=== PATIENT | male | born 1955 | race Caucasian/White ===

== ENCOUNTER → 2016-11-21 | Outpatient (CLI) | payer BC ==
[~2016-11-21] VITALS: Ht 182.9 cm; Wt 81.1 kg
[~2016-11-21] MED LIST: MOBIC 7.5MG7.5 MG PO; SYNTHROID 0.0.025 MG PO; SYNTHROID0.175 MG PO; VIVLODEX5 MG PO
[2016-11-21 12:16] VITALS: BP 126/82; PULSE 70
[2016-11-21 13:58] VITALS: BP 139/95; PULSE 65
== END ==
LOC: COL.RAD 11:51
DX: M54.5 Low back pain (principal)
CPT/HCPCS: G0260; J3301